=== PATIENT | female | born 1990 | race African-American/Black ===

== ENCOUNTER 2019-04-24 13:15 | Outpatient (CLI) | payer OTHER ==
--- NOTE | 2019-04-24 15:12 | MRI ---
MRI of thebrain: 04/24/2019 COMPARISON:None available HISTORY:Recent seizure, history of complex partial seizures TECHNIQUE: Multiplanar multisequence MR imaging of thebrain obtained with and without contrast. Findings:The diffusion weighted imaging demonstrates no evidence for acute infarction. The coronal gradient and axial gradient echo imaging demonstrates no evidence for intracranial hemorr jese. There is no midline shift or mass effect. No ventricular enlargement is noted. There is polypoid mucosal thickening noted within the sphenoid sinus on the right. Imaged paranasal sinuses and mastoid air cells appear grossly unremarkable otherwise. The postcontrast imaging demonstrates no abnormal enhancement within the brain parenchyma. Arterial flow voids at the axial level of the skull base appear grossly unremarkable on the T2-weight ed imaging. No focal area of abnormal signal intensity is identified within the mesial temporal lobe on either si de. IMPRESSION:Grossly unremarkable contrast enhanced brain MRI.
== END 2019-04-24 13:16 | disposition home or self-care (01) ==
LOC: SCSMRI 13:15
PROVIDERS: ATTEND Psychiatry & Neurology Neurology
DX: G40.209 Localization-related (focal) (partial) symptomatic epilepsy and epileptic syndromes with complex partial seizures, not intractable, without status epilepticus (principal)
CPT/HCPCS: 70553